=== PATIENT | male | born 1985 | race Caucasian/White ===

== ENCOUNTER 2018-05-18 20:51 | Emergency (ER) | payer MEDICAID ==
[~2018-05-18] VITALS: Ht 177.8 cm; Wt 80.0 kg
[2018-05-18 20:57] VITALS: BP 153/80
== END 2018-05-18 21:24 | disposition left against medical advice (07) ==
LOC: ED 21:18
DX: F10.120 Alcohol abuse with intoxication, uncomplicated (principal)
CPT/HCPCS: 99283